=== PATIENT | male | born 1985 | race African-American/Black ===

== ENCOUNTER 2018-08-27 10:53 | Emergency (ER) | payer OTHER ==
[~2018-08-27] VITALS: Ht 177.8 cm; Wt 73.5 kg
[2018-08-27 12:12] LABS: ABSOLUTE NEUTROPHILS 2.1 thou/uL (1.4-8.2); BASOPHILS 1.9 % (0.0-2.0); EOSINOPHILS 3.6 % (0.0-3.0); HEMATOCRIT 43.9 % (42.0-52.0); HEMOGLOBIN 15.1 gm/dL (14.0-18.0); LYMPHOCYTES 25.7 % (24.0-44.0); MCH 30.7 pg (26.0-34.0); MCHC 34.3 g/dL (28.0-37.0); MCV 89.4 fL (80.0-100.0); PLATELET COUNT 285 thou/uL (150-400); POLYS 56.8 % (36.0-66.0); RBC 4.91 mil/uL (4.50-6.00); RDW 12.6 % (10.5-14.5); WBC 3.6 thou/uL (4.0-11.0)
[2018-08-27 12:13] LABS: ANION GAP 8 mmol/L (7-16); BUN 11 mg/dL (7-18); CALCIUM 9.3 mg/dL (8.5-10.1); CHLORIDE 101 mmol/L (98-107); CO2 28 mmol/L (21-32); GLUCOSE 116 mg/dL (74-106); POTASSIUM 4.2 mmol/L (3.5-5.1); SODIUM 137 mmol/L (136-145)
[2018-08-27 12:22] LABS: ALBUMIN 4.5 g/dL (3.4-5.0); SGOT 19 U/L (15-37); SGPT 27 U/L (30-65); TOTAL BILIRUBIN 1.1 mg/dL (<0.1-1.0); TOTAL PROTEIN 8.4 g/dL (6.4-8.2); TROPONIN-I <0.06 ng/mL (<0.06)
[2018-08-27 12:22] LABS: URINE BILIRUBIN NEGATIVE (Negative); URINE BLOOD NEGATIVE (Negative); URINE CLARITY CLEAR; URINE COLOR YELLOW; URINE GLUCOSE-RANDOM* NEGATIVE (Negative); URINE KETONES NEGATIVE (Negative); URINE LEUKOCYTES-REFLEX NEGATIVE (Negative); URINE NITRITE-REFLEX NEGATIVE (Negative); URINE PROTEIN (DIPSTICK) NEGATIVE (Negative); URINE SPECIFIC GRAVITY <= 1.005 (1.005-1.035); URINE UROBILINOGEN 0.2 E.U./dl (0.2-1.0)
[2018-08-27 12:29] LABS: AMP/METHAMP Negative (Negative); BARBITURATES Negative (Negative); BENZODIAZEPINES Negative (Negative); COCAINE Negative (Negative); METHADONE Negative (Negative); OPIATES Negative (Negative); PCP Negative (Negative)
[2018-08-27 12:56] VITALS: BP 104/66
--- NOTE | 2018-08-28 07:45 | EKG ---
[place] [address] [employer] [employer] [place] [address] ELECTROCARDIOGRAM REPORT Name: OLGA HOLLOWAY Room #: [facility] Isabella#: [id number] ������������������ Admission: 08/27/18 ������������������ Attend Phys: Discharge: 08/27/18 ������������������ Date of : 89 Report #: [id number] ����������������������������������������������������������������� [id number] THIS REPORT FOR: //name// [facility] ED Test Date: 2018-08-27 Test Time: 11:26:03 Pat Name: OLGA HOLLOWAY Department: Room: Gender: M [employer] Upholsterer: : 1985 Requested By: Ashley Blunt Order Number: [id number] MD: Aleksander Jaramillo Measurements Intervals [place] Rate: 87 P: 85 MN: 158 QRS: 86 QRSD: 103 T: 72 QT: 363 QTc: 437 Interpretive Statements Sinus arrhythmia RSR' in V1 or V2, probably normal variant No previous ECG available for comparison Electronically Signed On 08-28-2018 7:45:28 CDT by Aleksander Jaramillo [email or web address] ��������������������������������������������� <ELECTRONICALLY SIGNED> ���������������������������������������� By: Aleksander Jaramillo MD, [facility] ��������������������������������������������� 08/28/18 0745 [id number] Aleksander Jaramillo MD, FACC /EPI
== END 2018-08-27 13:11 | disposition home or self-care (01) ==
LOC: ER 10:53
PROVIDERS: Nurse Practitioner Family
DX: F12.99 Cannabis use, unspecified with unspecified cannabis-induced disorder (principal); R00.2 Palpitations; J45.909 Unspecified asthma, uncomplicated; F17.210 Nicotine dependence, cigarettes, uncomplicated